=== PATIENT | male | born 1945 | race Caucasian/White ===

== ENCOUNTER 2018-09-05 20:55 | Observation (INO) | payer MEDICARE, OTHER ==
[~2018-09-05] VITALS: Ht 162.6 cm; Wt 69.5 kg
[2018-09-05] MEDS ORDERED: SOD CHLORIDE 0.9% 1,000 ML IV STA (21:18)
[2018-09-05] MEDS ORDERED: PANTOPRAZOLE IV 80 MG in SOD CHLORIDE 0.9% 100 ML IVPB STA (21:18)
[2018-09-05] MEDS ORDERED: PANTOPRAZOLE IV 80 MG in SOD CHLORIDE 0.9% 100 ML IV STA (21:18)
[2018-09-05] MEDS ORDERED: OCTREOTIDE 50 MCG in SOD CHLORIDE 0.9% 25 ML IVPB STA (21:18)
[2018-09-05] MEDS ORDERED: OCTREOTIDE 500 MCG in SOD CHLORIDE 0.9% 49 ML IV STA (21:18)
[2018-09-05] MEDS: ONDANSETRON 4 MG INJ IV STA ×2 (22:46→22:50)
[2018-09-06] VITALS (11 sets, daily range): BP systolic 140–197; BP diastolic 63–81; PULSE 63–74; RESP 16–18; Ht 162.6 cm; Wt 69.5 kg
--- NOTE | 2018-09-06 00:40 | ERD ---
ER Documentation Chief Complaint Chief Complaint rectal bleed and vomiting blood x2 days. +dizziness HPI This is a very pleasant 73-year-old male comes in with complaints of rectal bleed over the past 3-4 days along with vomiting coffee-ground and dark blood over the past 2 days. He said 4-5 episodes of coffee-ground emesis. He said for 6-8 episodes of blood in his stool. Denies any fevers or chills. Denies any alcohol abuse. He does have a history of "ulcers". Does not seek treatment currently for these ulcers. Patient denies any fevers or chills. Denies any other current issues ROS All systems reviewed and are negative except as per history of present illness. Allergies Allergies: Coded Allergies: No Known Allergy (Unverified , 09/05/18) PMhx/Soc Medical and Surgical Hx: pt denies Surgical Hx History of Surgery: No Anesthesia Reaction: No Hx Neurological Disorder: No Hx Respiratory Disorders: No Hx Cardiac Disorders: No Hx Psychiatric Problems: Yes (Anxiety) Hx Miscellaneous Medical Probl: Yes (Hep C) Hx Alcohol Use: Yes Hx Substance Use: Yes (heroin) Hx Tobacco Use: Yes Smoking Status: Former smoker Physical Exam Vitals Vital Signs Date Temp Pulse Resp B/P (MAP) Pulse Ox O2 O2 Flow FiO2 Time Delivery Rate 09/06/18 98.3 76 16 156/85 97 Nasal 2.0 00:16 (108) Cannula 09/05/18 77 8 151/80 97 Room Air 22:04 (103) 09/05/18 98.0 16 16 155/80 99 21:07 (105) Physical Exam Const: No acute distress Head: Atraumatic Eyes: Normal Conjunctiva ENT: Normal External Ears, Nose and Mouth. Neck: Full range of motion. No meningismus. Resp: Clear to auscultation bilaterally Cardio: Regular rate and rhythm, no murmurs Abd: Soft, non tender, non distended. Normal bowel sounds Skin: No petechiae or rashes Back: No midline or flank tenderness Ext: No cyanosis, or edema Neur: Awake and alert Psych: Normal Mood and Affect Result Diagram: 09/05/18215509/05/182155 Results 24 hrs Laboratory Tests Test 09/05/18 21:56 White Blood Count 7.0 10^3/ul Red Blood Count 4.00 10^6/ul Hemoglobin 11.5 g/dl Hematocrit 35.2 % Mean Corpuscular Volume 88.0 fl Mean Corpuscular Hemoglobin 28.8 pg Mean Corpuscular Hemoglobin Concent 32.7 g/dl Red Cell Distribution Width 14.6 % Platelet Count 240 10^3/UL Mean Platelet Volume 12.0 fl Immature Granulocytes % 0.400 % Neutrophils % 66.5 % Lymphocytes % 21.1 % Monocytes % 11.0 % Eosinophils % 0.4 % Basophils % 0.6 % Nucleated Red Blood Cells % 0.0 /100WBC Immature Granulocytes # 0.030 10^3/ul Neutrophils # 4.7 10^3/ul Lymphocytes # 1.5 10^3/ul Monocytes # 0.8 10^3/ul Eosinophils # 0.0 10^3/ul Basophils # 0.0 10^3/ul Nucleated Red Blood Cells # 0.0 10^3/ul Prothrombin Time 12.8 Sec Prothrombin Time Ratio 1.0 INR International Normalized Ratio 0.95 Activated Partial Thromboplast Time 26.4 Sec Sodium Level 140 mmol/L Potassium Level 3.8 mmol/L Chloride Level 105 mmol/L Carbon Dioxide Level 20 mmol/L Anion Gap 15 Blood Urea Nitrogen 19 mg/dl Creatinine 1.08 mg/dl Est Glomerular Filtrat Rate mL/min mL/min Glucose Level 125 mg/dl Calcium Level 8.6 mg/dl Total Bilirubin 0.0 mg/dl Direct Bilirubin 0.00 mg/dl Indirect Bilirubin 0.0 mg/dl Aspartate Amino Transf (AST/SGOT) 35 IU/L Alanine Aminotransferase (ALT/SGPT) 9 IU/L Alkaline Phosphatase 78 IU/L Troponin I 0.014 ng/ml Total Protein 8.0 g/dl Albumin 4.1 g/dl Globulin 3.90 g/dl Albumin/Globulin Ratio 1.05 Current Medications Medications Dose Sig/Keenan Start Time Status Last (Trade) Ordered Route PRN Stop Time Admin Dose Reason Admin Sodium 1,000 ml @ Q1H STAT 09/05/18 DC 09/05/18 Chloride 1,000 mls/hr IV 21:18 22:03 09/05/18 22:17 Pantoprazole 100 ml @ ONCE STAT 09/05/18 DC 09/05/18 80 mg/Sodium 400 mls/hr IVPB 21:18 22:46 Chloride 09/05/18 21:32 Pantoprazole 100 ml @ ONCE STAT 09/05/18 09/05/18 80 mg/Sodium 10 mls/hr IV 21:18 23:23 Chloride 09/06/18 07:17 Octreotide 26 ml @ Q16M STAT 09/05/18 DC 09/05/18 Acetate 50 100 mls/hr IVPB 21:18 22:46 mcg/ Sodium 09/05/18 21:33 Chloride Octreotide 50 ml @ 5 ONCE STAT 09/05/18 09/05/18 Acetate 500 mls/hr IV 21:18 23:24 mcg/ Sodium 09/06/18 07:17 Chloride Ondansetron 4 mg ONCE STAT 09/05/18 DC HCl (Zofran IV 21:18 Inj) 09/05/18 21:20 Pantoprazole 100 ml @ Q10H IV 09/06/18 80 mg/Sodium 10 mls/hr 07:00 Chloride Procedures/MDM Emergency department course: Patient was seen and evaluated by triage nurse. Placed in bed from the evaluation. Intravenous access established. Blood work sent off. Protonix infusion along with Protonix continuous drip initiated. Sandostatin infusion along with Sandostatin continuous drip started as well. Also given Zofran for nausea. Fluid bolus also given. EKG: Rate/Rhythm: [Normal Sinus Rhythm] QRS, ST, T-waves: [No changes consistent w/ acute ischemia] Impression: [No evidence of ischemia or arrhythmia] Chest X-ray 1V Interpreted by me: Soft Tissue: No acute abnormalities Bones: No acute abnormalities Mediastinum/Cardiac Silhouette/Lungs: [No acute abnormalities] Medical decision making: This 73-year-old male with likely bleeding ulcer disease. At this point patient will need to be admitted for further evaluation and management. Patient be admitted to telemetric setting to the hospitalist group. No evidence of surgical abdomen at this time. Critical Care: Time: 45 minutes, independent of any separately billable procedural time Treatments/Evaluations: Close monitoring and treatment of unstable vital signs, cardiorespiratory, and neurologic status, while maintaining tight balance of fluid, respiratory, and cardiac interventions. Departure Diagnosis: Primary Impression: GI bleed GI bleed type/associated pathology: unspecified gastrointestinal hemorrhage type Qualified Codes: K92.2 - Gastrointestinal hemorrhage, unspecified Condition: Serious MILI ALBERTS Sep 06, 2018 00:40
[2018-09-06] MEDS ORDERED: ATOR40TA68 PO (02:29)
[2018-09-06] MEDS ORDERED: LISI-471 PO (02:29)
[2018-09-06] MEDS ORDERED: AMLO-147 PO (02:29)
--- NOTE | 2018-09-06 05:20 | HP ---
Date/Time of Note Date/Time of Note DATE: 09/06/18 TIME: 05:12 Assessment/Plan VTE Prophylaxis SCD applied (from Nsg): Yes Pharmacological prophylaxis: NA/contraindicated Pharm contraindication: bleeding Lines/Catheters IV Catheter Type (from Nrsg): Peripheral IV Assessment/Plan Assessment/Plan 1. Upper GI bleed -Keep n.p.o. with IV fluid. Will make an exception for methadone (see below) -Protonix drip -Monitor hemoglobin closely -FOBT, ferritin/iron -GI consult 2. Normocytic anemia: See #1 3. IV drug use: Last use of IV heroin was yesterday -Methadone 4. Hypertension: IV antihypertensives while n.p.o. 5. Dyslipidemia: Hold statin for now Result Diagram: 09/05/18215509/05/182155 Results 24hrs Laboratory Tests Test 09/05/18 21:56 White Blood Count 7.0 Red Blood Count 4.00 L Hemoglobin 11.5 L Hematocrit 35.2 L Mean Corpuscular Volume 88.0 Mean Corpuscular Hemoglobin 28.8 L Mean Corpuscular Hemoglobin Concent 32.7 Red Cell Distribution Width 14.6 H Platelet Count 240 Mean Platelet Volume 12.0 H Immature Granulocytes % 0.400 Neutrophils % 66.5 Lymphocytes % 21.1 Monocytes % 11.0 Eosinophils % 0.4 Basophils % 0.6 Nucleated Red Blood Cells % 0.0 Immature Granulocytes # 0.030 Neutrophils # 4.7 Lymphocytes # 1.5 Monocytes # 0.8 Eosinophils # 0.0 Basophils # 0.0 Nucleated Red Blood Cells # 0.0 Prothrombin Time 12.8 Prothrombin Time Ratio 1.0 INR International Normalized Ratio 0.95 Activated Partial Thromboplast Time 26.4 Sodium Level 140 Potassium Level 3.8 Chloride Level 105 Carbon Dioxide Level 20 L Anion Gap 15 H Blood Urea Nitrogen 19 Creatinine 1.08 Est Glomerular Filtrat Rate mL/min Glucose Level 125 Calcium Level 8.6 Total Bilirubin 0.0 L Direct Bilirubin 0.00 Indirect Bilirubin 0.0 Aspartate Amino Transf (AST/SGOT) 35 Alanine Aminotransferase (ALT/SGPT) 9 L Alkaline Phosphatase 78 Troponin I 0.014 Total Protein 8.0 Albumin 4.1 Globulin 3.90 H Albumin/Globulin Ratio 1.05 HPI/ROS Admit Date/Time Admit Date/Time Sep 05, 2018 at 23:32 Hx of Present Illness This is a 73-year-old male with a history of hypertension, dyslipidemia, possible PUD, IV heroin use who presented to the ER complaining of vomiting blood. He said he had 3 episodes of hematemesis yesterday, described as dark blood. He said the last time he had hematemesis was over 30 years ago. He did not have an EGD at that time. On further questioning, he reported bloody and dark stool 2 days ago. He also reported having had same episode previously. Per patient, he had a colonoscopy at [facility] 2 months ago. He thinks it was normal study, but he is not sure. Reported occasional abdominal pain. Patient has history of IV drug use. Last use of IV heroin was yesterday. He said he only drinks alcohol occasionally. Denies frequent use of NSAIDs. When patient presented to ER, hemoglobin was found to be 11. He was never hypotensive. CT abdomen/pelvis shows large hiatal hernia, chronic pancreatitis and diverticular. . PMH/Family/Social Past Medical History Medical History: other (See HPI) Medications Current Medications Pantoprazole 80 mg/Sodium Chloride 100 ml @ 10 mls/hr ONCE STAT IV Last administered on 09/05/18at 23:23; Admin Dose 10 MLS/HR; Start 09/05/18 at 21:18; Stop 09/06/18 at 07:17 Octreotide Acetate 500 mcg/ Sodium Chloride 50 ml @ 5 mls/hr ONCE STAT IV Last administered on 09/05/18at 23:24; Admin Dose 5 MLS/HR; Start 09/05/18 at 21:18; Stop 09/06/18 at 07:17 Pantoprazole 80 mg/Sodium Chloride 100 ml @ 10 mls/hr Q10H IV ; Start 09/06/18 at 07:00 Coded Allergies: No Known Allergy (Unverified , 09/05/18) Past Surgical History Past Surgical Hx: other (See HPI) Family History Significant Family History: no pertinent family hx Social History Alcohol Use: occasionally Smoking Status: Current some day smoker Drug Use: heroin Exam/Review of Systems Vital Signs Vitals Vital Signs Date Temp Pulse Resp B/P (MAP) Pulse Ox O2 O2 Flow FiO2 Time Delivery Rate 09/06/18 68 04:00 09/06/18 98.5 16 148/66 94 03:41 (93) 09/06/18 Nasal 2.0 03:09 Cannula Exam Constitutional: alert, oriented, well developed Head: normocephalic, atraumatic Eyes: EOMI, PERRL Respiratory: clear to auscultation, normal air movement Cardiovascular: regular rate and rhythm Gastrointestinal: soft, non-tender Extremities: normal pulses MILI MABRY MD Sep 06, 2018 05:20
[2018-09-06] MEDS: PANTOPRAZOLE IV 80 MG in SOD CHLORIDE 0.9% 100 ML IV SCH ×2 (07:16→18:12)
--- NOTE | 2018-09-06 15:41 | PN ---
Date/Time of Note Date/Time of Note DATE: 09/06/18 TIME: 15:39 Assessment/Plan VTE Prophylaxis Risk score (from [facility] [place] [facility])>0 risk: 3 SCD applied (from [facility] [place]): No SCD contraindicated: low risk/ambulating Pharmacological prophylaxis: NA/contraindicated Pharm contraindication: bleeding Lines/Catheters IV Catheter Type (from [facility]): Peripheral IV Urinary Cath still in place: No Assessment/Plan Hospital Course Assessment and plan 1. GI bleed likely upper, stable consult GI 2. Acute blood loss anemia? Stable, transfuse for hemoglobin less than 7 3. Possible history of peptic ulcer dz/ gastritis; endoscopy- [facility] 4. Past vs ongoing chronic alcoholism 5. Chronic pancreatitis 6. History of IVDA, rule out hepatitis 7. Tobacco abuse status post counseling offered patch 8. Diverticulosis 9. Dyslipidemia 10. Abn EKG. Asymptomatic stable observe Subjective: No distress no events. No chest pain dyspnea Objective: Vital signs stable sinus rhythm Physical exam No pallor adenopathy JVD Regular no murmur rub gallop Clear Bs+ nt nd no RRG No edema Result Diagram: 09/06/18 0606 09/06/18 0606 Results 24hrs Laboratory Tests Test 09/05/18 21:56 09/06/18 06:06 White Blood Count 7.0 6.3 Red Blood Count 4.00 L 3.86 L Hemoglobin 11.5 L 11.0 L Hematocrit 35.2 L 33.4 L Mean Corpuscular Volume 88.0 86.5 Mean Corpuscular Hemoglobin 28.8 L 28.5 L Mean Corpuscular Hemoglobin Concent 32.7 32.9 Red Cell Distribution Width 14.6 H 14.8 H Platelet Count 240 218 Mean Platelet Volume 12.0 H 11.8 H Immature Granulocytes % 0.400 0.300 Neutrophils % 66.5 62.1 Lymphocytes % 21.1 23.5 Monocytes % 11.0 10.8 Eosinophils % 0.4 2.7 Basophils % 0.6 0.6 Nucleated Red Blood Cells % 0.0 0.0 Immature Granulocytes # 0.030 0.020 Neutrophils # 4.7 3.9 Lymphocytes # 1.5 1.5 Monocytes # 0.8 0.7 Eosinophils # 0.0 0.2 Basophils # 0.0 0.0 Nucleated Red Blood Cells # 0.0 0.0 Prothrombin Time 12.8 Prothrombin Time Ratio 1.0 INR International Normalized Ratio 0.95 Activated Partial Thromboplast Time 26.4 Sodium Level 140 142 Potassium Level 3.8 4.1 Chloride Level 105 109 Carbon Dioxide Level 20 L 26 Anion Gap 15 H 7 # Blood Urea Nitrogen 19 17 Creatinine 1.08 1.03 Est Glomerular Filtrat Rate mL/min Glucose Level 125 195 Calcium Level 8.6 8.3 L Total Bilirubin 0.0 L 0.2 Direct Bilirubin 0.00 0.00 Indirect Bilirubin 0.0 0.2 Aspartate Amino Transf (AST/SGOT) 35 35 Alanine Aminotransferase (ALT/SGPT) 9 L 18 Alkaline Phosphatase 78 70 Troponin I 0.014 Total Protein 8.0 6.8 # Albumin 4.1 3.4 Globulin 3.90 H 3.40 H Albumin/Globulin Ratio 1.05 1.00 Iron Level 61 Total Iron Binding Capacity 378 Percent Iron Saturation 16 L Ferritin 12.9 Exam/Review of Systems Exam Vitals Vital Signs Date Temp Pulse Resp B/P (MAP) Pulse Ox O2 O2 Flow FiO2 Time Delivery Rate 09/06/18 98.6 64 18 174/81 93 Room Air 12:02 (112) 09/06/18 2.0 08:24 Results Results 24hrs Laboratory Tests Test 09/05/18 21:56 09/06/18 06:06 White Blood Count 7.0 6.3 Red Blood Count 4.00 L 3.86 L Hemoglobin 11.5 L 11.0 L Hematocrit 35.2 L 33.4 L Mean Corpuscular Volume 88.0 86.5 Mean Corpuscular Hemoglobin 28.8 L 28.5 L Mean Corpuscular Hemoglobin Concent 32.7 32.9 Red Cell Distribution Width 14.6 H 14.8 H Platelet Count 240 218 Mean Platelet Volume 12.0 H 11.8 H Immature Granulocytes % 0.400 0.300 Neutrophils % 66.5 62.1 Lymphocytes % 21.1 23.5 Monocytes % 11.0 10.8 Eosinophils % 0.4 2.7 Basophils % 0.6 0.6 Nucleated Red Blood Cells % 0.0 0.0 Immature Granulocytes # 0.030 0.020 Neutrophils # 4.7 3.9 Lymphocytes # 1.5 1.5 Monocytes # 0.8 0.7 Eosinophils # 0.0 0.2 Basophils # 0.0 0.0 Nucleated Red Blood Cells # 0.0 0.0 Prothrombin Time 12.8 Prothrombin Time Ratio 1.0 INR International Normalized Ratio 0.95 Activated Partial Thromboplast Time 26.4 Sodium Level 140 142 Potassium Level 3.8 4.1 Chloride Level 105 109 Carbon Dioxide Level 20 L 26 Anion Gap 15 H 7 # Blood Urea Nitrogen 19 17 Creatinine 1.08 1.03 Est Glomerular Filtrat Rate mL/min Glucose Level 125 195 Calcium Level 8.6 8.3 L Total Bilirubin 0.0 L 0.2 Direct Bilirubin 0.00 0.00 Indirect Bilirubin 0.0 0.2 Aspartate Amino Transf (AST/SGOT) 35 35 Alanine Aminotransferase (ALT/SGPT) 9 L 18 Alkaline Phosphatase 78 70 Troponin I 0.014 Total Protein 8.0 6.8 # Albumin 4.1 3.4 Globulin 3.90 H 3.40 H Albumin/Globulin Ratio 1.05 1.00 Iron Level 61 Total Iron Binding Capacity 378 Percent Iron Saturation 16 L Ferritin 12.9 Medications Medication Current Medications Pantoprazole 80 mg/Sodium Chloride 100 ml @ 10 mls/hr Q10H IV Last administered on 09/06/18at 07:16; Admin Dose 10 MLS/HR; Start 09/06/18 at 07:00 MARIELLE CHRISTIAN MD Sep 06, 2018 15:41
[2018-09-06] MEDS ORDERED: ONDANSETRON 4 MG INJ IV PRN (16:00)
[2018-09-06] MEDS ORDERED: CLONIDINE 0.2 MG/24 HR PATCH TRANSDERM SCH (16:00)
[2018-09-06] MEDS: D5W-0.45 NACL + KCL 10 MEQ 1,000 ML IV SCH (16:29)
[2018-09-06] MEDS: ENALAPRILAT 1.25 MG INJ IV PRN (16:30)
[2018-09-06] MEDS: HYDROmorphONE 1 MG/ML SYG IV PRN ×2 (16:31→21:30)
[2018-09-06] MEDS: THIAMINE 100 MG TAB PO SCH (17:10)
[2018-09-06] MEDS: NICOTINE (14 MG/24 HR) PATCH TRANSDERM SCH (17:10)
--- NOTE | 2018-09-06 18:53 | CONS ---
Assessment/Plan Assessment/Plan Hospital Course (Demo Recall) Summary Assessment and Plan: Assessment: Hematemesis/melena History of IV drug use -Last used heroin 09/05/18 Chronic pancreatitis History of Hepatitis C -S/p treatment per patient will check RNA Tobacco abuse Excessive ETOH use Diverticulosis Dyslipidemia Hypertension Plan: Clear liquid diet today NPO after 09/07/18 0800 EGD tomorrow Endoscopy - risks/benefits/alternatives/indications of procedure and sedation/anesthesia discussed with patient who states understanding and gives informed consent to proceed. Continue PPI gtt Given history of IV drug use we will check hepatitis panel Patient seen in collaboration with Dr. Montes CC: FRANCISCO MONTES MD ; Consultation Date/Type/Reason Admit Date/Time Sep 05, 2018 at 23:32 Date of Consultation: Sep 06, 2018 Type of Consult GI Reason for Consultation Hematemesis/melena Date/Time of Note DATE: 09/06/18 TIME: 18:48 Hx of Present Illness This is a 73-year-old male with past medical history of hypertension, dyslipidemia, IV drug use (heroin) presented to the ER with complaints of hematemesis/melena. Initial evaluation patient has a hemoglobin 11.5, hematocrit 35.2, MCV 88.0, MCH 28.8, normal platelet counts, INR of 0.95 and LFTs were checked today and are deemed normal he underwent a CT abdomen pelvis without contrast a large hiatal hernia, the gastric antrum below the diaphragm. Puncate with its pancreatic head calcifications suggestive of chronic pancreatitis, mild prostatomegaly, diverticular distal colon without diverticulitis, moderate to severe atherosclerotic medication of the aortic and iliac systems. We will deliver degenerative enthesopathy and disc disease of the thoracolumbar spine.Patient states his last colonoscopy was about 2 months ago at the [facility] unsure of results believes it was normal. Last EGD was about 30 years ago when he had similar symptoms Review of Systems: [A 12 system, review was conducted and is negative except as noted in the HPI or here.] Past Medical History Medical History: other (See HPI) Home Meds Reported Medications Atorvastatin* (Atorvastatin*) 40 Mg Tablet, 40 MG PO QHS, #30 TAB 09/06/18 Amlodipine Besylate* (Amlodipine Besylate*) 10 Mg Tablet, 10 MG PO DAILY, #30 TAB 09/06/18 Lisinopril* (Lisinopril*) 20 Mg Tablet, 20 MG PO DAILY, #30 TAB 09/06/18 Medications Current Medications Pantoprazole 80 mg/Sodium Chloride 100 ml @ 10 mls/hr Q10H IV Last admini stered on 09/06/18at 18:12; Admin Dose 10 MLS/HR; Start 09/06/18 at 07:00 Potassium Chloride/Dextrose/ Sod Cl 1,000 ml @ 50 mls/hr Q20H IV Last administered on 09/06/18 16:29; Admin Dose 50 MLS/HR; Start 09/06/18 at 16:00 Thiamine HCl (Vitamin B1) 100 mg DAILY PO Last administered on 09/06/18 17:10; Admin Dose 100 MG; Start 09/06/18 at 16:00 Nicotine (Nicoderm 14 Mg/ 24hr) 1 patch DAILY TRANSDERM Last administered on 09/06/18at 17:10; Admin Dose 1 PATCH; Start 09/06/18 at 16:30 Enalaprilat (Vasotec Iv) 0.625 mg Q4H PRN IV ELEVATED SYSTOLIC BP Last administered on 09/06/18 16:30; Admin Dose 0.625 MG; Start 09/06/18 at 16:00 Clonidine HCl (Catapres-Tts 2 Patch) 1 patch Q7D TRANSDERM ; Start 09/06/18 at 16:00 Ondansetron HCl (Zofran Inj) 4 mg Q4H PRN IV NAUSEA AND/OR VOMITING; Start at 16:00 Hydromorphone HCl (Dilaudid) 1 mg Q4H PRN IV SEVERE PAIN LEVEL 7-10 Last administered on 09/06/18at 16:31; Admin Dose 1 MG; Start 09/06/18 at 16:00 Allergies: Coded Allergies: No Known Allergy (Unverified , 09/05/18) Past Surgical History Past Surgical Hx: other (See HPI) Social History Alcohol Use: occasionally Smoking Status: Current some day smoker Drug Use: heroin Exam/Review of Systems Exam Vitals Vital Signs Date Temp Pulse Resp B/P (MAP) Pulse Ox O2 O2 Flow FiO2 Time Delivery Rate 09/06/18 74 16:01 09/06/18 97.5 18 197/68 95 Room Air 15:50 (111) 09/06/18 2.0 08:24 Exam PHYSICAL EXAMINATION: GENERAL: Alert & oriented x 3, in no acute distress SKIN: No lesions HEAD: Normocephalic, atraumatic, no tenderness. EYES: Pupils equal reactive to light CHEST: Inspection within normal limits. CARDIOVASCULAR: Heart: Regular rate and rhythm, RESPIRATORY: Lungs clear to auscultation GASTROINTESTINAL AND LIVER: Abdomen: Soft, non tenderness, non-distended, no hernias, no masses, no organomegaly, no ascites, no guarding, no rebound tenderness, normoactive bowel sounds. Rectal: Deferred. EXTREMITIES: No cyanosis, clubbing or edema. Results Result Diagram: 09/06/18 0606 09/06/18 0606 Results 24hrs Laboratory Tests Test 09/05/18 21:56 09/06/18 06:06 09/06/18 16:22 White Blood Count 7.0 6.3 Red Blood Count 4.00 L 3.86 L Hemoglobin 11.5 L 11.0 L Hematocrit 35.2 L 33.4 L Mean Corpuscular Volume 88.0 86.5 Mean Corpuscular Hemoglobin 28.8 L 28.5 L Mean Corpuscular Hemoglobin Concent 32.7 32.9 Red Cell Distribution Width 14.6 H 14.8 H Platelet Count 240 218 Mean Platelet Volume 12.0 H 11.8 H Immature Granulocytes % 0.400 0.300 Neutrophils % 66.5 62.1 Lymphocytes % 21.1 23.5 Monocytes % 11.0 10.8 Eosinophils % 0.4 2.7 Basophils % 0.6 0.6 Nucleated Red Blood Cells % 0.0 0.0 Immature Granulocytes # 0.030 0.020 Neutrophils # 4.7 3.9 Lymphocytes # 1.5 1.5 Monocytes # 0.8 0.7 Eosinophils # 0.0 0.2 Basophils # 0.0 0.0 Nucleated Red Blood Cells # 0.0 0.0 Prothrombin Time 12.8 Prothrombin Time Ratio 1.0 INR International Normalized Ratio 0.95 Activated Partial Thromboplast Time 26.4 Sodium Level 140 142 Potassium Level 3.8 4.1 Chloride Level 105 109 Carbon Dioxide Level 20 L 26 Anion Gap 15 H 7 # Blood Urea Nitrogen 19 17 Creatinine 1.08 1.03 Est Glomerular Filtrat Rate mL/min Glucose Level 125 195 Calcium Level 8.6 8.3 L Total Bilirubin 0.0 L 0.2 Direct Bilirubin 0.00 0.00 Indirect Bilirubin 0.0 0.2 Aspartate Amino Transf (AST/SGOT) 35 35 Alanine Aminotransferase (ALT/SGPT) 9 L 18 Alkaline Phosphatase 78 70 Troponin I 0.014 < 0.012 Total Protein 8.0 6.8 # Albumin 4.1 3.4 Globulin 3.90 H 3.40 H Albumin/Globulin Ratio 1.05 1.00 Iron Level 61 Total Iron Binding Capacity 378 Percent Iron Saturation 16 L Ferritin 12.9 Lipase 69 Medications Medication Current Medications Pantoprazole 80 mg/Sodium Chloride 100 ml @ 10 mls/hr Q10H IV Last administered on 09/06/18 18:12; Admin Dose 10 MLS/HR; Start 09/06/18 at 07:00 Potassium Chloride/Dextrose/ Sod Cl 1,000 ml @ 50 mls/hr Q20H IV Last administered on 09/06/18 16:29; Admin Dose 50 MLS/HR; Start 09/06/18 at 16:00 Thiamine HCl (Vitamin B1) 100 mg DAILY PO Last administered on 09/06/18 17:10; Admin Dose 100 MG; Start 09/06/18 at 16:00 Nicotine (Nicoderm 14 Mg/ 24hr) 1 patch DAILY TRANSDERM Last administered on 09/06/18 17:10; Admin Dose 1 PATCH; Start 09/06/18 at 16:30 Enalaprilat (Vasotec Iv) 0.625 mg Q4H PRN IV ELEVATED SYSTOLIC BP Last administered on 09/06/18 16:30; Admin Dose 0.625 MG; Start 09/06/18 at 16:00 Clonidine HCl (Catapres-Tts 2 Patch) 1 patch Q7D TRANSDERM ; Start 09/06/18 at 16:00 Ondansetron HCl (Zofran Inj) 4 mg Q4H PRN IV NAUSEA AND/OR VOMITING; Start 09/06/18 at 16:00 Hydromorphone HCl (Dilaudid) 1 mg Q4H PRN IV SEVERE PAIN LEVEL 7-10 Last administered on 09/06/18 16:31; Admin Dose 1 MG; Start 09/06/18 at 16:00 LISA MORIN Sep 06, 2018 18:53
[2018-09-07] VITALS (17 sets, daily range): BP systolic 126–198; BP diastolic 65–95; PULSE 58–82; RESP 16–22
[2018-09-07] MEDS: PANTOPRAZOLE IV 80 MG in SOD CHLORIDE 0.9% 100 ML IV SCH ×2 (03:50→14:36)
[2018-09-07] MEDS: ENALAPRILAT 1.25 MG INJ IV PRN ×3 (03:50→11:45)
[2018-09-07] MEDS: HYDROmorphONE 1 MG/ML SYG IV PRN ×2 (03:50→13:37)
[2018-09-07] MEDS: CREON (12k-38k-60k) 1 CAP PO SCH ×3 (07:55→17:42)
[2018-09-07] MEDS: THIAMINE 100 MG TAB PO SCH (08:06)
[2018-09-07] MEDS: NICOTINE (14 MG/24 HR) PATCH TRANSDERM SCH (08:26)
[2018-09-07] MEDS: D5W-0.45 NACL + KCL 10 MEQ 1,000 ML IV SCH ×2 (12:00→15:33)
[2018-09-07] MEDS ORDERED: hydrALAzine 20 MG INJ IV ONE (15:30)
--- NOTE | 2018-09-07 16:08 | PREAC ---
Date/Time of Note Date/Time of Note DATE: 09/07/18 TIME: 16:06 Anesthesia Eval and Record Evaluation Time Pre-Procedure Interview DATE: 09/07/18 TIME: 16:06 Age 73 Sex male NPO: 8 hrs Preoperative diagnosis Hematemesis, Melena Planned procedure EGD Past Medical History Past Medical History: Includes Cardio: HTN, Dyslipidemia Pulm: Smoking Hx Hepatic: Alcohol abuse, Other (Hx of Chronic Pancreatitis) Heme: Anemia Infection(s): Hep C Recreational drugs: Other (Hx of IV drug abuse) Surgery & Anesthesia Issues No known issue Meds Anticoagulation: No Beta Brigido within 24 hr: No Reason Beta Brigido not given: Pt. not on B-Brigido Reported Medications Atorvastatin* (Atorvastatin*) 40 Mg Tablet, 40 MG PO QHS, #30 TAB 09/06/18 Amlodipine Besylate* (Amlodipine Besylate*) 10 Mg Tablet, 10 MG PO DAILY, #30 TAB 09/06/18 Lisinopril* (Lisinopril*) 20 Mg Tablet, 20 MG PO DAILY, #30 TAB 09/06/18 Current Medications Pantoprazole 80 mg/Sodium Chloride 100 ml @ 10 mls/hr Q10H IV Last administered on 09/07/18at 14:36; Admin Dose 10 MLS/HR; Start 09/06/18 at 07:00 Potassium Chloride/Dextrose/ Sod Cl 1,000 ml @ 50 mls/hr Q20H IV Last administered on 09/07/18at 15:33; Admin Dose 50 MLS/HR; Start 09/06/18 at 16:00 Thiamine HCl (Vitamin B1) 100 mg DAILY PO Last administered on 09/06/18at 17:10; Admin Dose 100 MG; Start 09/06/18 at 16:00 Nicotine (Nicoderm 14 Mg/ 24hr) 1 patch DAILY TRANSDERM Last administered on 09/07/18at 08:26; Admin Dose 1 PATCH; Start 09/06/18 at 16:30 Enalaprilat (Vasotec Iv) 0.625 mg Q4H PRN IV ELEVATED SYSTOLIC BP Last administered on 09/07/18at 11:45; Admin Dose 0.625 MG; Start 09/06/18 at 16:00 Clonidine HCl (Catapres-Tts 2 Patch) 1 patch Q7D TRANSDERM Last administered on 09/06/18at 19:01; Admin Dose 1 PATCH; Start 09/06/18 at 16:00 Ondansetron HCl (Zofran Inj) 4 mg Q4H PRN IV NAUSEA AND/OR VOMITING; Start 09/06/18 at 16:00 Hydromorphone HCl (Dilaudid) 1 mg Q4H PRN IV SEVERE PAIN LEVEL 7-10 Last administered on 09/07/18at 13:37; Admin Dose 1 MG; Start 09/06/18 at 16:00 Amylase/Lipase/ Protease (CREON ([id number])) 1 cap WITH MEALS PO ; Start 09/07/18 at 07:55 Meds reviewed: Yes Allergies Coded Allergies: No Known Allergy (Unverified , 09/05/18) Allergies Reviewed: Yes Labs/Studies Labs Reviewed: Reviewed by anesthesiologist Result Diagram: 09/07/18 0556 09/07/18 0556 Laboratory Tests 09/07/18 05:56 test: N/A Studies: ECG (n/a), CXR (n/a) Pre-procedure Exam Last vitals Vital Signs Date Temp Pulse Resp B/P (MAP) Pulse Ox O2 O2 Flow FiO2 Time Delivery Rate 09/07/18 97.0 66 18 198/95 96 Room Air 16:03 (129) 09/06/18 2.0 19:50 Airway: Adequate mouth opening, Adequate thyromental dist Mallampati: Mallampati II Teeth: Abnormal Lung: Normal Heart: Normal ASA Physical Status ASA physical status: 3 Emergency: None Planned Anesthetic General/MAC: MAC Planned Pain Management Parenteral pain med Pre-operative Attestations Prior to commencing anesthesia and surgery, the patient was re-evaluated, there was verification of: *The patient's identity *The results of appropriate recent lab work and preoperative vital signs *The above evaluation not changing prior to induction *Anesthetic plan, risk benefits, alternative and complications discussed with patient/family; questions answered; patient/family understands, accepts and wishes to proceed. JORGE ALVARADO MD Sep 07, 2018 16:08
--- NOTE | 2018-09-07 16:22 | HPN ---
Date/Time of Note Date/Time of Note DATE: 09/07/18 TIME: 16:22 Interval H&P Admission Note Pt. seen H&P reviewed: No system changes FRANCISCO SIMON MD Sep 07, 2018 16:22
--- NOTE | 2018-09-07 16:24 | PAC ---
Date/Time of Note Date/Time of Note DATE: 09/07/18 TIME: 16:23 Post-Anesthesia Notes Post-Anesthesia Note Last documented vital signs Vital Signs Date Temp Pulse Resp B/P (MAP) Pulse Ox O2 O2 Flow FiO2 Time Delivery Rate 09/07/18 97.0 66 18 198/95 96 Room Air 16:35 (129) 09/06/18 2.0 19:50 Activity: WNL Respiratory function: WNL Cardiovascular function: WNL Mental status: Baseline Pain reasonably controlled: Yes Hydration appropriate: Yes Nausea/Vomiting absent: Yes JORGE ALVARADO MD Sep 07, 2018 16:24
[2018-09-07] MEDS ORDERED: PROPOFOL 20 ML ONE (16:25)
[2018-09-07] MEDS ORDERED: EPHEDrine SULFATE 50 MG/5 ML SYG IV PRN (16:30)
[2018-09-07] MEDS ORDERED: HYDROmorphONE 1 MG/5 ML IV SYRINGE IV PRN ×2 (16:30)
[2018-09-07] MEDS ORDERED: FENTAnyl 50 MCG/ML VIAL IV PRN ×2 (16:30)
[2018-09-07] MEDS ORDERED: METOCLOPRAMIDE 10 MG INJ IV PRN (16:30)
[2018-09-07] MEDS ORDERED: hydrALAzine 20 MG INJ IV PRN (16:30)
[2018-09-07] MEDS ORDERED: ONDANSETRON 4 MG INJ IV PRN (16:30)
[2018-09-07] MEDS ORDERED: LABETALOL HCL 20MG INJ IV PRN (16:30)
--- NOTE | 2018-09-07 17:05 | PN ---
Date/Time of Note Date/Time of Note DATE: 09/07/18 TIME: 17:03 Assessment/Plan VTE Prophylaxis Risk score (from [facility] [place])>0 risk: 3 SCD applied (from [facility] [place]): No SCD contraindicated: low risk/ambulating Pharmacological prophylaxis: NA/contraindicated Pharm contraindication: bleeding Lines/Catheters IV [facility] Type (from [facility] Peripheral IV Urinary Cath still in place: No Assessment/Plan Hospital Course A/P 1. GI bleed likely upper, stable. Endoscopy today 2. Acute blood loss anemia? Stable, transfuse for hemoglobin less than 7 3. Possible history of peptic ulcer dz/ gastritis; endoscopy- [facility] 4. Past vs ongoing chronic alcoholism 5. Chronic pancreatitis 6. History of IVDA, rule out hepatitis 7. Tobacco abuse, status post counseling offered patch 8. Diverticulosis 9. Dyslipidemia 10. Abn EKG. Asymptomatic stable observe 11. Accelerated hypertension, npo on clonidine patch. Will add as needed glynn akthrough medication S: 09/06 no distress no events. No chest pain dyspnea 09/07: Events noted O: Vital signs stable sinus rhythm Physical exam -Deferred patient in GI lab Result Diagram: 09/07/18 0556 09/07/18 0556 Results 24hrs Laboratory Tests Test 09/06/18 20:40 09/07/18 05:56 09/07/18 09:15 Hemoglobin 11.8 L 10.8 L Hematocrit 35.7 L 33.4 L White Blood Count 5.2 Red Blood Count 3.79 L Mean Corpuscular Volume 88.1 Mean Corpuscular Hemoglobin 28.5 L Mean Corpuscular Hemoglobin Concent 32.3 Red Cell Distribution Width 14.6 H Platelet Count 213 Mean Platelet Volume 12.0 H Immature Granulocytes % 0.400 Neutrophils % 64.4 Lymphocytes % 19.6 Monocytes % 10.7 Eosinophils % 4.3 Basophils % 0.6 Nucleated Red Blood Cells % 0.0 Immature Granulocytes # 0.020 Neutrophils # 3.3 Lymphocytes # 1.0 Monocytes # 0.6 Eosinophils # 0.2 Basophils # 0.0 Nucleated Red Blood Cells # 0.0 Prothrombin Time 13.2 Prothrombin Time Ratio 1.0 INR International Normalized Ratio 0.99 Sodium Level 141 Potassium Level 3.7 Chloride Level 109 Carbon Dioxide Level 25 Anion Gap 7 Blood Urea Nitrogen 16 Creatinine 0.88 Est Glomerular Filtrat Rate mL/min Glucose Level 106 # Hemoglobin A1c 5.9 Calcium Level 8.2 L Phosphorus Level 2.7 Magnesium Level 1.9 Total Bilirubin 0.2 Direct Bilirubin 0.00 Indirect Bilirubin 0.2 Aspartate Amino Transf (AST/SGOT) 37 Alanine Aminotransferase (ALT/SGPT) 23 Alkaline Phosphatase 71 Troponin I 0.018 Total Protein 6.7 Albumin 3.3 Globulin 3.40 H Albumin/Globulin Ratio 0.97 Triglycerides Level 111 Cholesterol Level 163 LDL Cholesterol, Calculated 89 HDL Cholesterol 52 Cholesterol/HDL Ratio 3.1 Thyroid Stimulating Hormone (TSH) 3.240 Hepatitis B Surface Antigen NEGATIVE Hepatitis B Surface Antibody NEGATIVE Hepatitis B Core Total Antibody REACTIVE H Hepatitis C Antibody REACTIVE H Urine Opiates Screen Positive Urine Barbiturates Negative Urine Amphetamines Screen Negative Urine Benzodiazepines Screen Negative Urine Cocaine Screen Negative Urine Cannabinoids Negative Exam/Review of Systems Exam Vitals Vital Signs Date Temp Pulse Resp B/P (MAP) Pulse Ox O2 O2 Flow FiO2 Time Delivery Rate 09/07/18 68 16:14 09/07/18 97.0 18 198/95 96 Room Air 16:03 (129) 09/06/18 2.0 19:50 Intake and Output 09/06/18 09/06/18 09/07/18 1414:59 22:59 06:59 IntakeIntake Total 120 ml 550 ml BalanceBalance 120 ml 550 ml Results Results 24hrs Laboratory Tests Test 09/06/18 20:40 09/07/18 05:56 09/07/18 09:15 Hemoglobin 11.8 L 10.8 L Hematocrit 35.7 L 33.4 L White Blood Count 5.2 Red Blood Count 3.79 L Mean Corpuscular Volume 88.1 Mean Corpuscular Hemoglobin 28.5 L Mean Corpuscular Hemoglobin Concent 32.3 Red Cell Distribution Width 14.6 H Platelet Count 213 Mean Platelet Volume 12.0 H Immature Granulocytes % 0.400 Neutrophils % 64.4 Lymphocytes % 19.6 Monocytes % 10.7 Eosinophils % 4.3 Basophils % 0.6 Nucleated Red Blood Cells % 0.0 Immature Granulocytes # 0.020 Neutrophils # 3.3 Lymphocytes # 1.0 Monocytes # 0.6 Eosinophils # 0.2 Basophils # 0.0 Nucleated Red Blood Cells # 0.0 Prothrombin Time 13.2 Prothrombin Time Ratio 1.0 INR International Normalized Ratio 0.99 Sodium Level 141 Potassium Level 3.7 Chloride Level 109 Carbon Dioxide Level 25 Anion Gap 7 Blood Urea Nitrogen 16 Creatinine 0.88 Est Glomerular Filtrat Rate mL/min Glucose Level 106 # Hemoglobin A1c 5.9 Calcium Level 8.2 L Phosphorus Level 2.7 Magnesium Level 1.9 Total Bilirubin 0.2 Direct Bilirubin 0.00 Indirect Bilirubin 0.2 Aspartate Amino Transf (AST/SGOT) 37 Alanine Aminotransferase (ALT/SGPT) 23 Alkaline Phosphatase 71 Troponin I 0.018 Total Protein 6.7 Albumin 3.3 Globulin 3.40 H Albumin/Globulin Ratio 0.97 Triglycerides Level 111 Cholesterol Level 163 LDL Cholesterol, Calculated 89 HDL Cholesterol 52 Cholesterol/HDL Ratio 3.1 Thyroid Stimulating Hormone (TSH) 3.240 Hepatitis B Surface Antigen NEGATIVE Hepatitis B Surface Antibody NEGATIVE Hepatitis B Core Total Antibody REACTIVE H Hepatitis C Antibody REACTIVE H Urine Opiates Screen Positive Urine Barbiturates Negative Urine Amphetamines Screen Negative Urine Benzodiazepines Screen Negative Urine Cocaine Screen Negative Urine Cannabinoids Negative Medications Medication Current Medications Potassium Chloride/Dextrose/ Sod Cl 1,000 ml @ 50 mls/hr Q20H IV Last administered on 09/07/18 15:33; Admin Dose 50 MLS/HR; Start 09/06/18 at 16:00 Thiamine HCl (Vitamin B1) 100 mg DAILY PO Last administered on 09/06/18 17:10; Admin Dose 100 MG; Start 09/06/18 at 16:00 Nicotine (Nicoderm 14 Mg/ 24hr) 1 patch DAILY TRANSDERM Last administered on 09/07/18 08:26; Admin Dose 1 PATCH; Start 09/06/18 at 16:30 Enalaprilat (Vasotec Iv) 0.625 mg Q4H PRN IV ELEVATED SYSTOLIC BP Last administered on 09/07/18 11:45; Admin Dose 0.625 MG; Start 09/06/18 at 16:00 Clonidine HCl (Catapres-Tts 2 Patch) 1 patch Q7D TRANSDERM Last administered on 09/06/18 19:01; Admin Dose 1 PATCH; Start 09/06/18 at 16:00 Ondansetron HCl (Zofran Inj) 4 mg Q4H PRN IV NAUSEA AND/OR VOMITING; Start 09/06/18 at 16:00 Hydromorphone HCl (Dilaudid) 1 mg Q4H PRN IV SEVERE PAIN LEVEL 7-10 Last administered on 2/27/19at 13:37; Admin Dose 1 MG; Start 09/06/18 at 16:00 Amylase/Lipase/ Protease (CREON ([id number])) 1 cap WITH MEALS PO ; Start 09/07/18 at 07:55 Hydromorphone HCl (Dilaudid) 0.2 mg PACU PRN IV MILD PAIN 1-3; Start 09/07/18 at 16:30; Status UNV Hydromorphone HCl (Dilaudid) 0.4 mg PACU PRN IV MOD PAIN 4-6; Start 09/07/18 at 16:30; Status UNV Fentanyl (Sublimaze) 25 mcg PACU ORDER PRN IV MILD PAIN 1-3; Start 09/07/18 at 16:30; Status UNV Fentanyl (Sublimaze) 50 mcg PACU ORDER PRN IV MOD PAIN 4-6; Start 09/07/18 at 16:30; Status UNV Ondansetron HCl (Zofran Inj) 4 mg PACU ORDER PRN IV NAUSEA/VOMITING; Start 09/07/18 at 16:30; Status UNV Metoclopramide HCl (Reglan) 10 mg PACU ORDER PRN IV NAUSEA/VOMITING; Start 09/07/18 at 16:30; Status UNV Labetalol HCl (Labetalol) 5 mg PACU ORDER PRN IV HIGH BLOOD PRESSURE; Start 09/07/18 at 16:30; Status UNV Hydralazine HCl (Apresoline) 5 mg PACU ORDER PRN IV HIGH BLOOD PRESSURE; Start 09/07/18 at 16:30; Status UNV Ephedrine Sulfate 5 mg PACU ORDER PRN IV BLOOD PRESSURE SUPPORT; Start 09/07/18 at 16:30; Status UNV Pantoprazole (Protonix Tab) 40 mg BID@06,18 PO ; Start 09/07/18 at 18:00; Status UNV MARIELLE CHRISTIAN MD Sep 07, 2018 17:05
[2018-09-07] MEDS ORDERED: PANTOPRAZOLE (EC) 40 MG TAB PO SCH (18:00)
[2018-09-07] MEDS: AMLODIPINE 10 MG TAB PO SCH (18:15)
[2018-09-08] VITALS (10 sets, daily range): BP systolic 127–169; BP diastolic 68–81; PULSE 59–73; RESP 18–20
[2018-09-08] MEDS: NICOTINE (14 MG/24 HR) PATCH TRANSDERM SCH (08:00)
[2018-09-08] MEDS: CREON (12k-38k-60k) 1 CAP PO SCH ×3 (08:00→17:45)
[2018-09-08] MEDS: THIAMINE 100 MG TAB PO SCH (08:01)
[2018-09-08] MEDS: AMLODIPINE 10 MG TAB PO SCH (08:01)
[2018-09-08] MEDS: HYDROmorphONE 1 MG/ML SYG IV PRN (08:09)
[2018-09-08] MEDS ORDERED: LISINOPRIL 20 MG TAB PO SCH (09:00)
[2018-09-08] MEDS: D5W-0.45 NACL + KCL 10 MEQ 1,000 ML IV SCH (12:55)
--- NOTE | 2018-09-08 15:04 | PN ---
Date/Time of Note Date/Time of Note DATE: 09/08/18 TIME: 14:59 Assessment/Plan VTE Prophylaxis Risk score (from [facility])>0 risk: 3 SCD applied (from [facility] [place]): No SCD contraindicated: other (scds) Pharmacological prophylaxis: other (scds) Lines/Catheters IV [facility] Saline Lock Urinary Cath still in place: No Assessment/Plan Hospital Course Summary Assessment and Plan: Assessment: Hematemesis/melena EGD 09/07/18 Distal esophagitis Large hiatal hernia Moderate gastritis. Rule out H. pylori infection Biopsies obtained History of IV drug use -Last used heroin 09/05/18 Chronic pancreatitis History of Hepatitis C -S/p treatment per patient will check RNA Tobacco abuse Excessive ETOH use Diverticulosis Dyslipidemia Hypertension Plan: Await bx results Continue PPI- pt to take daily x4 weeks, continue creon with meals Pt to f/u with GI after discharge to review bx results D/c planning per hospitalist Patient seen in collaboration with Dr. Montes/Juwan Subjective: Course reviewed with nursing staff Patient interviewed and examined All labs, imaging and other results reviewed The patient feel well, No overt signs of GI bleed, HGB stable reviewed EGD results, currently tolerating diet well no c/o n/v or abd pain. PHYSICAL EXAMINATION: GENERAL: Alert & oriented x 3, in no acute distress SKIN: No lesions HEAD: Normocephalic, atraumatic, no tenderness. EYES: Pupils equal reactive to light CHEST: Inspection within normal limits. CARDIOVASCULAR: Heart: Regular rate and rhythm, RESPIRATORY: Lungs clear to auscultation GASTROINTESTINAL AND LIVER: Abdomen: Soft, non tenderness, non-distended, no hernias, no masses, no organomegaly, no ascites, no guarding, no rebound tenderness, normoactive bowel sounds. Rectal: Deferred. EXTREMITIES: No cyanosis, clubbing or edema. Result Diagram: 09/08/18 0555 09/08/18 0556 Results 24hrs Laboratory Tests Test 09/08/18 05:55 09/08/18 05:56 White Blood Count 5.6 Red Blood Count 4.06 L Hemoglobin 11.6 L Hematocrit 35.9 L Mean Corpuscular Volume 88.4 Mean Corpuscular Hemoglobin 28.6 L Mean Corpuscular Hemoglobin Concent 32.3 Red Cell Distribution Width 14.5 Platelet Count 195 Mean Platelet Volume 11.6 H Immature Granulocytes % 0.500 H Neutrophils % 61.9 Lymphocytes % 20.9 Monocytes % 11.7 H Eosinophils % 4.1 Basophils % 0.9 Nucleated Red Blood Cells % 0.0 Immature Granulocytes # 0.030 Neutrophils # 3.4 Lymphocytes # 1.2 Monocytes # 0.7 Eosinophils # 0.2 Basophils # 0.1 Nucleated Red Blood Cells # 0.0 Magnesium Level 1.8 Sodium Level 137 Potassium Level 3.4 L Chloride Level 105 Carbon Dioxide Level 24 Anion Gap 8 Blood Urea Nitrogen 12 Creatinine 0.91 Est Glomerular Filtrat Rate mL/min Glucose Level 101 Calcium Level 8.3 L Total Bilirubin 0.2 Direct Bilirubin 0.00 Indirect Bilirubin 0.2 Aspartate Amino Transf (AST/SGOT) 42 Alanine Aminotransferase (ALT/SGPT) 22 Alkaline Phosphatase 72 Total Protein 6.7 Albumin 3.2 L Globulin 3.50 H Albumin/Globulin Ratio 0.91 Exam/Review of Systems Exam Vitals Vital Signs Date Temp Pulse Resp B/P (MAP) Pulse Ox O2 O2 Flow FiO2 Time Delivery Rate 09/08/18 61 12:04 09/08/18 99.0 20 130/68 94 11:35 (88) 09/07/18 Room Air 16:45 09/06/18 2.0 19:50 Intake and Output 09/07/18 09/07/18 09/08/18 1515:00 23:00 07:00 IntakeIntake Total 300 ml 620 ml 500 ml BalanceBalance 300 ml 620 ml 500 ml Results Results 24hrs Laboratory Tests Test 09/08/18 05:55 09/08/18 05:56 White Blood Count 5.6 Red Blood Count 4.06 L Hemoglobin 11.6 L Hematocrit 35.9 L Mean Corpuscular Volume 88.4 Mean Corpuscular Hemoglobin 28.6 L Mean Corpuscular Hemoglobin Concent 32.3 Red Cell Distribution Width 14.5 Platelet Count 195 Mean Platelet Volume 11.6 H Immature Granulocytes % 0.500 H Neutrophils % 61.9 Lymphocytes % 20.9 Monocytes % 11.7 H Eosinophils % 4.1 Basophils % 0.9 Nucleated Red Blood Cells % 0.0 Immature Granulocytes # 0.030 Neutrophils # 3.4 Lymphocytes # 1.2 Monocytes # 0.7 Eosinophils # 0.2 Basophils # 0.1 Nucleated Red Blood Cells # 0.0 Magnesium Level 1.8 Sodium Level 137 Potassium Level 3.4 L Chloride Level 105 Carbon Dioxide Level 24 Anion Gap 8 Blood Urea Nitrogen 12 Creatinine 0.91 Est Glomerular Filtrat Rate mL/min Glucose Level 101 Calcium Level 8.3 L Total Bilirubin 0.2 Direct Bilirubin 0.00 Indirect Bilirubin 0.2 Aspartate Amino Transf (AST/SGOT) 42 Alanine Aminotransferase (ALT/SGPT) 22 Alkaline Phosphatase 72 Total Protein 6.7 Albumin 3.2 L Globulin 3.50 H Albumin/Globulin Ratio 0.91 Medications Medication Current Medications Potassium Chloride/Dextrose/ Sod Cl 1,000 ml @ 50 mls/hr Q20H IV Last administered on 09/08/18 12:55; Admin Dose 50 MLS/HR; Start 09/06/18 at 16:00 Thiamine HCl (Vitamin B1) 100 mg DAILY PO Last administered on 09/08/18 08:01; Admin Dose 100 MG; Start 09/06/18 at 16:00 Nicotine (Nicoderm 14 Mg/ 24hr) 1 patch DAILY TRANSDERM Last administered on 09/08/18 08:00; Admin Dose 1 PATCH; Start 09/06/18 at 16:30 Enalaprilat (Vasotec Iv) 0.625 mg Q4H PRN IV ELEVATED SYSTOLIC BP Last administered on 09/07/18 11:45; Admin Dose 0.625 MG; Start 09/06/18 at 16:00 Clonidine HCl (Catapres-Tts 2 Patch) 1 patch Q7D TRANSDERM Last administered on 09/06/18 19:01; Admin Dose 1 PATCH; Start 09/06/18 at 16:00 Ondansetron HCl (Zofran Inj) 4 mg Q4H PRN IV NAUSEA AND/OR VOMITING; Start 09/06/18 at 16:00 Hydromorphone HCl (Dilaudid) 1 mg Q4H PRN IV SEVERE PAIN LEVEL 7-10 Last administered on 09/08/18 08:09; Admin Dose 1 MG; Start 09/06/18 at 16:00 Amylase/Lipase/ Protease (CREON (12k-08k-60k)) 1 cap WITH MEALS PO Last administered on 09/08/18 12:27; Admin Dose 1 CAP; Start 09/07/18 at 07:55 Lisinopril (Zestril) 20 mg DAILY PO Last administered on 09/08/18at 08:09; Admin Dose 20 MG; Start 09/08/18 at 09:00 Amlodipine Besylate (Norvasc) 10 mg DAILY PO Last administered on 09/08/18at 08:01; Admin Dose 10 MG; Start 09/07/18 at 18:00 LISA MORIN Sep 08, 2018 15:04
--- NOTE | 2018-09-08 16:53 | DS ---
Date/Time of Note Date/Time of Note DATE: 09/08/18 TIME: 16:51 Discharge Summary Admission/Discharge Info Admit Date/Time Sep 05, 2018 at 23:32 Discharge Date/Time Patient Condition: Stable Consults Dr Montes Procedures Hx of Present Illness 73-year-old gentleman admitted with upper GI bleed Hospital Course Hospitalist coverage/hospital course GI bleed upper seen by GI. Endoscopy showed the following findings. Stable today for discharge. Did not require transfusion. Requested to follow-up with GI as he had some biopsies done. On Protonix PPI for 4 weeks. Creon with meals. Asked to quit drugs. Counseling done. A/P 1. GI bleed likely upper, stable. sp Endoscopy 2. Acute blood loss anemia? Stable, discharge 3. Possible history of peptic ulcer dz/ gastritis; endoscopy- 4. Past vs ongoing chronic alcoholism 5. Chronic pancreatitis 6. History of IVDA, rule out hepatitis. 7. Tobacco abuse, status post counseling offered patch 8. Diverticulosis 9. Dyslipidemia 10. Abn EKG. Asymptomatic stable observe 11. Accelerated hypertension, stable observe 12. Chronic hepatitis C status post treatment. May check RNA titers as outpatient Home Meds Reported Medications Atorvastatin* (Atorvastatin*) 40 Mg Tablet, 40 MG PO QHS, #30 TAB 09/06/18 Amlodipine Besylate* (Amlodipine Besylate*) 10 Mg Tablet, 10 MG PO DAILY, #30 TAB 09/06/18 Lisinopril* (Lisinopril*) 20 Mg Tablet, 20 MG PO DAILY, #30 TAB 09/06/18 Primary Care Provider Care Physician No Primary Time spent on discharge: > 30 minutes Pending Labs Laboratory Tests Test 09/08/18 05:55 09/08/18 05:56 White Blood Count 5.6 10^3/ul (4.8-10.8) Red Blood Count 4.06 10^6/ul (4.70-6.10) Hemoglobin 11.6 g/dl (14.0-18.0) Hematocrit 35.9 % (42.0-52.0) Mean Corpuscular Volume 88.4 fl (82.0-101.0) Mean Corpuscular Hemoglobin 28.6 pg (29.0-33.0) Mean Corpuscular 32.3 g/dl (32.0-37.0) Hemoglobin Concent Red Cell Distribution Width 14.5 % (11.5-14.5) Platelet Count 195 10^3/UL (140-415) Mean Platelet Volume 11.6 fl (7.4-10.4) Immature Granulocytes % 0.500 % (0.001-0.429) Neutrophils % 61.9 % (39.0-77.0) Lymphocytes % 20.9 % (15.0-51.0) Monocytes % 11.7 % (0.0-11.0) Eosinophils % 4.1 % (0.0-7.0) Basophils % 0.9 % (0.0-2.0) Nucleated Red Blood Cells % 0.0 /100WBC (0.0-0.0) Immature Granulocytes # 0.030 10^3/ul (0.0-0.031) Neutrophils # 3.4 10^3/ul (1.6-7.5) Lymphocytes # 1.2 10^3/ul (0.8-2.9) Monocytes # 0.7 10^3/ul (0.3-0.9) Eosinophils # 0.2 10^3/ul (0.0-0.5) Basophils # 0.1 10^3/ul (0.0-0.1) Nucleated Red Blood Cells # 0.0 10^3/ul (0.0-0.0) Magnesium Level 1.8 mg/dl (1.7-2.5) Sodium Level 137 mmol/L (135-144) Potassium Level 3.4 mmol/L (3.5-5.1) Chloride Level 105 mmol/L (97-110) Carbon Dioxide Level 24 mmol/L (21-31) Anion Gap 8 (5-13) Blood Urea Nitrogen 12 mg/dl (7-20) Creatinine 0.91 mg/dl (0.61-1.24) Est Glomerular Filtrat mL/min (>60) Rate mL/min Glucose Level 101 mg/dl (70-220) Calcium Level 8.3 mg/dl (8.4-10.2) Total Bilirubin 0.2 mg/dl (0.2-1.3) Direct Bilirubin 0.00 mg/dl (0.00-0.20) Indirect Bilirubin 0.2 mg/dl (0-1.1) Aspartate Amino 42 IU/L (15-46) Transf (AST/SGOT) Alanine 22 IU/L (13-69) Aminotransferase (ALT/SGPT) Alkaline Phosphatase 72 IU/L (42-121) Total Protein 6.7 g/dl (6.1-8.1) Albumin 3.2 g/dl (3.3-4.9) Globulin 3.50 g/dl (1.3-3.2) Albumin/Globulin Ratio 0.91 MARIELLE CHRISTIAN MD Sep 08, 2018 16:53
--- NOTE | 2018-09-08 16:56 | PDOCDIS ---
Discharge Instructions CONDITION [id number] Patient Condition: [id number] Stable HOME CARE INSTRUCTIONS: [id number] Diet Instructions: [id number] Regular ACTIVITY: [id number] Activity Restrictions: [id number] Slowly Increase Activity Do not Drive FOLLOW UP/APPOINTMENTS Follow-up Plan Appointment primary 1 week EDITH Montes 1-2 weeks MARIELLE CHRISTIAN MD Sep 08, 2018 16:56
[2018-09-08] MEDS ORDERED: Nicotine (14 Mg/24 Hr) TRANSDERM (17:02)
[2018-09-08] MEDS ORDERED: LIPA1CAP4 PO (17:02)
[2018-09-08] MEDS ORDERED: PANT40TA4 PO (17:02)
[2018-09-08] MEDS ORDERED: THIA100T56 PO (17:02)
[2018-09-09] MEDS ORDERED: PANTOPRAZOLE (EC) 40 MG TAB PO SCH (06:00)
== END 2018-09-08 18:58 | disposition home or self-care (01) ==
LOC: E/R 20:55 → TEL 23:32
PROVIDERS: ADMIT Internal Medicine; ATTEND Internal Medicine
DX: K92.2 Gastrointestinal hemorrhage, unspecified (principal); K29.50 Unspecified chronic gastritis without bleeding; K20.9 Esophagitis, unspecified; K44.9 Diaphragmatic hernia without obstruction or gangrene; D64.9 Anemia, unspecified; Z72.0 Tobacco use; I10 Essential (primary) hypertension; E78.5 Hyperlipidemia, unspecified; Z87.891 Personal history of nicotine dependence
CPT/HCPCS: 36415; 43239; 71045; 74176; 80053; 80061; 80307; 82728; 83036; 83540; 83690; 83735; 84100; 84443; 84484; 85014; 85018; 85025; 85610; 85730; 86704; 86706; 86709; 86803; 86850; 86900; 86901; 87340; 88305; 88312; 93005; 96374; 96375; 96376; 99291; C9113; G0378; J0360; J1170; J2354; J2405; J3480; J7030

== ENCOUNTER 2018-12-03 18:37 | Emergency (ER) | payer MEDICARE, OTHER ==
[~2018-12-03] VITALS: Ht 162.6 cm; Wt 55.1 kg
[~2018-12-03 18:37] MED LIST: AMLO-147 PO; ATOR40TA68 PO; LIPA1CAP4 PO; LISI-471 PO; Nicotine (14 Mg/24 Hr) TRANSDERM; PANT40TA4 PO; THIA100T56 PO
[2018-12-03 18:38] VITALS: Ht 162.6 cm; Wt 55.1 kg
[2018-12-03] MEDS ORDERED: ALBUTEROL 0.5% (NEB) 2.5 MG/0.5 ML AMP INH STA (18:48)
[2018-12-03] MEDS ORDERED: DEXAMETHASONE 10 MG/ML 1 ML INJ IV STA (18:48)
[2018-12-03] MEDS ORDERED: IPRATROPIUM (NEB) 0.5 MG/2.5 ML AMP INH STA (18:48)
--- NOTE | 2018-12-03 18:59 | ERD ---
ER Documentation Chief Complaint Chief Complaint Pt reports SOB x 2 months, RUQ pain, vomiting blood HPI 73-year-old gentleman who presents to the emergency room complaining of shortness of breath. He states that the shortness of breath is worse after he smoked a cigarette approximately 2 hours prior to arrival. He states that he quit smoking but again his last cigarette was just prior to arrival. Patient thinks that he has had shortness of breath for some time frame. He reports that he was recently admitted to [facility] because of heroin overdose and stayed for 7 days was discharged yesterday. He gave me authorization to call over to [facility] but they do not have a medical record under his name and date of . Patient denies any chest pain or pleuritic pain. No fevers or chills or significant cough. No exertional symptoms. Patient states that he just needs a breathing treatment. ROS All systems reviewed and are negative except as per history of present illness. Medications Home Meds Active Scripts Azithromycin* (Zithromax*) 250 Mg Tablet, 250 MG PO .ZPACK DIRECTED, #6 TAB TAKE 500 MG (2 TABS) THE FIRST DAY THEN 250 MG (1 TAB) DAYS 2-5 Prov:CHANDNI CEBALLOS MD 12/03/18 Albuterol Sulfate* (Ventolin HFA*) 18 Gm Hfa.aer.ad, 2 PUFF INHALATION Q4H, #1 INHALER Prov:CHANDNI CEBALLOS MD 12/03/18 Thiamine* (Vitamin B-1*) 100 Mg Tablet, 100 MG PO DAILY for 30 Days, #30 TAB Prov:MARIELLE CHRISTIAN MD 09/08/18 Pantoprazole* (Pantoprazole*) 40 Mg Tablet., 40 MG PO DAILY@06 for 30 Days, #30 otc omeprazole Prov:MARIELLE CHRISTIAN MD 09/08/18 Wywezq-Gdreewog-Ucpdlcv* (Cresharmila LONG* 12,000) 12,000 L-38,000-60,000 Unit Capsule., 1 CAP PO WITH MEALS for 10 Days, #30 2 Refills Prov:MARIELLE CHRISTIAN MD 09/08/18 [Nicotine (14 Mg/24 Hr)] 1 PATCH PATCH No Conflict Check, 1 PATCH TRANSDERM DAILY for 10 Days Prov:MARIELLE CHRISTIAN MD 09/08/18 Reported Medications Atorvastatin* (Atorvastatin*) 40 Mg Tablet, 40 MG PO QHS, #30 TAB 09/06/18 Amlodipine Besylate* (Amlodipine Besylate*) 10 Mg Tablet, 10 MG PO DAILY, #30 TAB 09/06/18 Lisinopril* (Lisinopril*) 20 Mg Tablet, 20 MG PO DAILY, #30 TAB 09/06/18 Allergies Allergies: Coded Allergies: No Known Allergy (Unverified , 09/05/18) PMhx/Soc History of Surgery: No Anesthesia Reaction: No Hx Neurological Disorder: No Hx Respiratory Disorders: No Hx Cardiac Disorders: Yes (HTN, HLD) Hx Psychiatric Problems: Yes (ANXIETY) Hx Miscellaneous Medical Probl: No Hx Alcohol Use: Yes Hx Substance Use: Yes (HEROIN) Hx Tobacco Use: Yes Smoking Status: Current every day smoker FmHx Family History: No diabetes Physical Exam Vitals Vital Signs Date Temp Pulse Resp B/P (MAP) Pulse Ox O2 O2 Flow FiO2 Time Delivery Rate 12/03/18 80 20 97 Nasal 2.0 19:19 Cannula 12/03/18 97 2.0 19:19 12/03/18 Nasal 2 18:52 Cannula 12/03/18 98.2 102 24 112/73 95 18:38 (86) Physical Exam General: Well developed, well nourished, no acute distress Head: Normocephalic, atraumatic. Eyes: Pupils equally reactive, EOM intact ENT: Moist mucous membranes Neck: Supple, no lymphadenopathy Respiratory: Scant wheezing, good aeration, no distress Cardiovascular: RRR, no murmurs, rubs, or gallops Abdominal: Soft, non-tender, non-distended, no peritoneal signs : Deferred MSK: No edema, no unilateral swelling, 5/5 strength Neurologic: Alert and oriented, moving all extremities, normal speech, no focal weakness, no cerebellar signs Skin: No rash Psych: Normal mood Result Diagram: 12/03/18190512/03/181906 Results 24 hrs Laboratory Tests Test 12/03/18 19:06 12/03/18 19:07 White Blood Count 7.0 10^3/ul Red Blood Count 4.76 10^6/ul Hemoglobin 13.0 g/dl Hematocrit 40.5 % Mean Corpuscular Volume 85.1 fl Mean Corpuscular Hemoglobin 27.3 pg Mean Corpuscular Hemoglobin Concent 32.1 g/dl Red Cell Distribution Width 17.1 % Platelet Count 257 10^3/UL Mean Platelet Volume 12.4 fl Immature Granulocytes % 0.300 % Neutrophils % 63.8 % Lymphocytes % 23.5 % Monocytes % 9.0 % Eosinophils % 2.7 % Basophils % 0.7 % Nucleated Red Blood Cells % 0.0 /100WBC Immature Granulocytes # 0.020 10^3/ul Neutrophils # 4.5 10^3/ul Lymphocytes # 1.7 10^3/ul Monocytes # 0.6 10^3/ul Eosinophils # 0.2 10^3/ul Basophils # 0.1 10^3/ul Nucleated Red Blood Cells # 0.0 10^3/ul Sodium Level 145 mmol/L Potassium Level 3.7 mmol/L Chloride Level 110 mmol/L Carbon Dioxide Level 21 mmol/L Anion Gap 14 Blood Urea Nitrogen 16 mg/dl Creatinine 1.09 mg/dl Est Glomerular Filtrat Rate mL/min mL/min Glucose Level 144 mg/dl Calcium Level 9.2 mg/dl Troponin I < 0.012 ng/ml Current Medications Medications Dose Sig/Keenan Start Time Status Last (Trade) Ordered Route PRN Stop Time Admin Dose Reason Admin Albuterol 5 mg ONCE STAT 12/03/18 DC 12/03/18 (Proventil INH 18:48 19:18 0.5% (Neb)) 12/03/18 18:50 Ipratropium 1 mg ONCE STAT 12/03/18 DC 12/03/18 [place] INH 18:48 19:18 (Atrovent 12/03/18 18:50 0.02% (Neb)) 10 mg ONCE STAT 12/03/18 DC 12/03/18 Dexamethasone IV 18:48 19:02 (Decadron) 12/03/18 18:50 Procedures/MDM EKG, MONITORS, & DIAGNOSTIC IMAGING: EKG: I reviewed and interpreted a 12-lead EKG. Rhythm: Normal sinus rhythm ST Changes: No contiguous ST segment elevations T waves: No contiguous T wave inversions Impression: No evidence of acute cardiac ischemia Chest x-ray: Chest x-ray: I reviewed and interpreted a 1 view of the chest Mediastinum: No enlargement Cardiac silhouette: No cardiomegaly Airspace: Clear lung soto bilaterally without evidence of pneumothorax Bones: No evidence of fracture LAB INTERPRETATION: I reviewed the laboratory testing and it shows no evidence of acute process MEDICAL DECISION MAKING: The patient has wheezing and shortness of breath after smoking a cigarette and likely has underlying COPD or emphysema. Shortness of breath is not lead generation representative of pulmonary embolism ACS or CHF. Low concern for pneumonia. Ever given his age I believe an EKG troponin and chest x-ray would be reasonable. Patient is a somewhat difficult historian. He states that he was recently admitted to [facility] though they do not have a record of his recent hospitalization. Unclear if he gave a different name. Patient denies any acute heroin use. He is protecting his airway. The patient will benefit from breathing treatment and Decadron. I do not believe the patient requires hospitalization. This is likely secondary to chronic smoking history. The patient will be referred to his primary care physician. ER COURSE: * Breathing treatment and Decadron provided. * Patient is now sleeping and resting comfortably. Saturations greater than 92% on room air. Patient is safe for discharge. * Laboratory testing and diagnostic imaging shows no evidence of cardiac process or pulmonary process other than COPD exacerbation. * Smoking Cessation: I had a greater than 3 minute conversation with the patient regarding smoking cessation. We discussed multiple alternatives. CONSULTATION: None DISPOSITION PLAN: The patient does not have an identifiable emergent medical condition that warrants inpatient hospitalization at this time. The patient is deemed safe for discharge with outpatient follow-up. We discussed follow up with the patient's primary care doctor within 24 to 48 hours as needed. We also discussed return to the emergency room for worsening symptoms or worsening condition. Outpatient referral: None required Discharge Medications: Albuterol, azithromycin Departure Diagnosis: Primary Impression: COPD exacerbation Additional Impression: Shortness of breath Condition: Stable CHANDNI CEBALLOS MD December 03, 2018 18:59
[2018-12-03] MEDS ORDERED: AZIT250T PO (19:56)
[2018-12-03] MEDS ORDERED: ALBU18HF INHALATION (19:56)
[2018-12-03 20:14] VITALS: BP 118/76; PULSE 84; RESP 18
== END 2018-12-03 20:16 | disposition home or self-care (01) ==
LOC: E/R 18:37
DX: J44.1 Chronic obstructive pulmonary disease with (acute) exacerbation (principal); I10 Essential (primary) hypertension; F17.210 Nicotine dependence, cigarettes, uncomplicated
CPT/HCPCS: 71045; 80048; 84484; 85025; 94664; 96374; 99285; J1100